=== PATIENT | female | born 1985 | race Caucasian/White ===

== ENCOUNTER 2017-04-25 15:06 | Emergency (ER) | payer SELFPAY ==
[2017-04-25 15:16] VITALS: BP 152/84; PULSE 135; RESP 26; TEMP 97.6
[2017-04-25] MEDS ORDERED: LORazepam 2 MG TAB PO ONE (15:30)
[2017-04-25 18:00] LABS: AUTOMATED NEUTROPHIL # 7.6 TH/MM3 (1.8-7.7); BASOPHIL % 0.5 % (0.0-2.0); EOSINOPHIL % 0.1 % (0.0-4.0); HEMATOCRIT 41.6 % (35.0-46.0); HEMOGLOBIN 14.2 GM/DL (11.6-15.3); LYMPH % 19.4 % (9.0-44.0); MEAN CELL VOLUME 90.1 FL (80.0-100.0); MEAN CORPUSCULAR HEMOGLOBIN 30.8 PG (27.0-34.0); MEAN CORPUSCULAR HGB CONC 34.1 % (32.0-36.0); MEAN PLATELET VOLUME 8.2 FL (7.0-11.0); MONO % 5.6 % (0.0-8.0); MONOCYTE # 0.6 TH/MM3 (0-0.9); NEUT % 74.4 % (16.0-70.0); PLATELET COUNT 154 TH/MM3 (150-450); RED BLOOD COUNT 4.62 MIL/MM3 (4.00-5.30); RED CELL DISTRIBUTION WIDTH 14.1 % (11.6-17.2); WHITE BLOOD COUNT 10.3 TH/MM3 (4.0-11.0)
[2017-04-25 18:28] LABS: AST (GOT) 35 U/L (15-37); BICARBONATE 28.5 MEQ/L (21.0-32.0); BLOOD UREA NITROGEN 6 MG/DL (7-18); CALCIUM 9.1 MG/DL (8.5-10.1); CHLORIDE 99 MEQ/L (98-107); CREATININE 0.77 MG/DL (0.50-1.00); GLOMERULAR FILTRATION RATE 87 ML/MIN (>89); GLUCOSE,RANDOM 93 MG/DL (74-106); SODIUM (NA) 136 MEQ/L (136-145)
[2017-04-25 18:29] LABS: ALT (GPT) 33 U/L (10-53)
[2017-04-25 18:31] LABS: ALKALINE PHOSPHATASE 150 U/L (45-117); TOTAL BILIRUBIN ADULT 0.9 MG/DL (0.2-1.0); TOTAL PROTEIN 7.8 GM/DL (6.4-8.2)
[2017-04-25 20:31] LABS: BACTERIA, URINE RARE /hpf; BILIRUBIN, URINE NEG (NEG); BLOOD, URINE NEG (NEG); GLUCOSE,URINE NEG (NEG); HYALINE CAST, URINE 1 /lpf (RARE); KETONE, URINE NEG (NEG); MUCUS URINE FEW /lpf (OCC); NITRITE,URINE NEG (NEG); SQUAMOUS EPITHELIAL CELL URINE 5 /hpf (0-5); URINE COLOR YELLOW (YELLW/STRAW); URINE LEUKOCYTE ESTERASE NEG (NEG)
--- NOTE | 2017-04-25 21:38 | PD ---
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 Patient states that she woke up with a sensation that is worsened throughout the day. Patient says she has had previous episodes of this and does have panic attacks occasionally. Her last serious panic attack was 6 months ago. Patient denies any medical issues or medication use. States that she does go on alcohol "binges" and states these occur about twice a week. Says she drinks about a 12 pack of beer on these binges. Her last binge was last night. Says that she is upset because "they are trying to take her kids". Patient denies suicidal homicidal ideation at this time. Patient has never had a "serious" suicide attempts. States she felt suicidal several days ago but again does not feel suicidal now. [facility] Social History Tobacco Use: No Allergies-Medications (Allergen,Severity, Reaction): Coded Allergies: No Known Allergies (Unverified , 04/25/17) Review of Systems Except as stated in HPI: all other systems reviewed are Neg Physical Exam Narrative GENERAL: Well-developed, well-nourished, resting in bed comfortably SKIN: Focused skin assessment warm/dry. HEAD: Atraumatic. Normocephalic. EYES: Pupils equal and round. No scleral icterus. No injection or drainage. ENT: No nasal bleeding or discharge. Mucous membranes pink and moist. NECK: Trachea midline. No JVD. No midline tenderness CARDIOVASCULAR: Regular rate and rhythm. No murmur appreciated. RESPIRATORY: No accessory muscle use. Clear to auscultation. Breath sounds equal bilaterally. GASTROINTESTINAL: Abdomen soft, non-tender, nondistended. Hepatic and splenic margins not palpable. MUSCULOSKELETAL: No obvious deformities. No clubbing. No cyanosis. No edema. Left anterior chest mild tenderness palpation NEUROLOGICAL: Awake and alert. No obvious cranial nerve deficits. Motor grossly within normal limits. Normal speech. PSYCHIATRIC: Appropriate mood and affect; insight and judgment normal. Data Data Last Documented VS Vital Signs Date Time Temp Pulse Resp B/P (MAP) Pulse Ox O2 Delivery O2 Flow Rate FiO2 04/25/17 15:16 97.6 135 26 152/84 (106) Orders Orders Lorazepam (Ativan) (04/25/17 15:30) Complete Blood Count With Diff (04/25/17 17:12) Comprehensive Metabolic Panel (04/25/17 17:12) Urinalysis - C+S If Indicated (04/25/17 17:12) Drug Screen, Random Urine (04/25/17 17:12) Alcohol (Ethanol) (04/25/17 17:12) Ed Urine Pregnancytest Poc (04/25/17 17:12) Potassium Chloride (Kcl) (04/25/17 21:45) Ed Discharge Order (04/25/17 21:45) Labs Laboratory Tests Test 04/25/17 17:22 04/25/17 17:51 White Blood Count 10.3 TH/MM3 Red Blood Count 4.62 MIL/MM3 Hemoglobin 14.2 GM/DL Hematocrit 41.6 % Mean Corpuscular Volume 90.1 FL Mean Corpuscular Hemoglobin 30.8 PG Mean Corpuscular Hemoglobin Concent 34.1 % Red Cell Distribution Width 14.1 % Platelet Count 154 TH/MM3 Mean Platelet Volume 8.2 FL Neutrophils (%) (Auto) 74.4 % Lymphocytes (%) (Auto) 19.4 % Monocytes (%) (Auto) 5.6 % Eosinophils (%) (Auto) 0.1 % Basophils (%) (Auto) 0.5 % Neutrophils # (Auto) 7.6 TH/MM3 Lymphocytes # (Auto) 2.0 TH/MM3 Monocytes # (Auto) 0.6 TH/MM3 Eosinophils # (Auto) 0.0 TH/MM3 Basophils # (Auto) 0.0 TH/MM3 CBC Comment DIFF FINAL Differential Comment Blood Urea Nitrogen 6 MG/DL Creatinine 0.77 MG/DL Random Glucose 93 MG/DL Total Protein 7.8 GM/DL Albumin 4.0 GM/DL Calcium Level 9.1 MG/DL Alkaline Phosphatase 150 U/L Aspartate Amino Transf (AST/SGOT) 35 U/L Alanine Aminotransferase (ALT/SGPT) 33 U/L Total Bilirubin 0.9 MG/DL Sodium Level 136 MEQ/L Potassium Level 3.2 MEQ/L Chloride Level 99 MEQ/L Carbon Dioxide Level 28.5 MEQ/L Anion Gap 9 MEQ/L Estimat Glomerular Filtration Rate 87 ML/MIN Ethyl Alcohol Level LESS THAN 3 MG/DL Urine Color YELLOW Urine Turbidity CLEAR Urine pH 6.0 Urine Specific [place] 1.008 Urine Protein NEG mg/dL Urine Glucose (UA) NEG mg/dL Urine Ketones NEG mg/dL Urine Occult Blood NEG Urine Nitrite NEG Urine Bilirubin NEG Urine Urobilinogen LESS THAN 2.0 MG/DL Urine Leukocyte Esterase NEG Urine RBC 1 /hpf Urine WBC 1 /hpf Urine Squamous Epithelial Cells 5 /hpf Urine Bacteria RARE /hpf Urine Hyaline Casts 1 /lpf Urine Mucus FEW /lpf Microscopic Urinalysis Comment CULT NOT INDICATED Urine Opiates Screen NEG Urine Barbiturates Screen NEG Urine Amphetamines Screen NEG Urine Benzodiazepines Screen NEG Urine Cocaine Screen NEG Urine Cannabinoids Screen NEG MDM Medical Decision Making Medical Screen Exam Complete: Yes Emergency Medical Condition: Yes Differential Diagnosis Panic attack, anxiety, alcohol withdrawal Narrative Course 32y female presents emergency department complaining of chest pain, difficulty moving her arms, severe anxiety and feeling as if she was 'going to pass out' 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 Patient states that she woke up with a sensation that is worsened throughout the day. Patient says she has had previous episodes of this and does have panic attacks occasionally. Her last serious panic attack was 6 months ago. Patient denies any medical issues or medication use. States that she does go on alcohol "binges" and states these occur about twice a week. Says she drinks about a 12 pack of beer on these binges. Her last binge was last night. Says that she is upset because "they are trying to take her kids". Patient denies suicidal homicidal ideation at this time. Patient has never had a "serious" suicide attempts. States she felt suicidal several days ago but again does not feel suicidal now. Vitals stable. HR and BP decreased to 80-100BPM, 134/86 throughout visit. Physical exam findings unremarkable. Labs show K=3.2, 30meq KCl administered. CBC unremarkable, remaining CMP and labs unremarkable. UDS negative. Pt given 2mg ativan in the waiting room today by triage staff to reduce her symptoms, prior to seeing her in the ED today. Symptoms are resolved by the time I was able to evaluate her. I had a lengthy discussion regarding her condition today. I provided reassurance regarding her labs and physical exam findings. Patient admitted that she has been more upset because her kids are "being taken away". Patient does deny suicidal homicidal ideations however, states that she has been suicidal previously. Patient denies any previous attempts. I offered a psych eval and patient declined. I gave the patient a packet of psychiatrists and other references for her condition. Advised that she should abstain from alcohol as she may seriously injured herself. I discussed grounding techniques to help with her symptoms. Patient states understanding and she would follow-up as discussed today. Advised her to return for worsening or persistent symptoms. Diagnosis Primary Impression: Panic attack Additional Impression: Hypokalemia Referrals: Psychiatrist [facility] Additional Instructions: You have been given a packet of information from our psychiatry team. I recommend you follow-up with her providers in this packet. Avoid alcohol when you are upset as it is possible to hurt yourself further. If you develop worsening or persistent symptoms return to the emergency department. Disposition: 01 DISCHARGE HOME Condition: Stable Geovanna Barnes Apr 25, 2017 21:38
[2017-04-25] MEDS ORDERED: POTASSIUM CHLORIDE 10 MEQ CONTROLLED RELEASE TAB PO ONE (21:45)
== END 2017-04-25 22:13 | disposition home or self-care (01) ==
LOC: EDBD 15:06 → NEPC 15:06
DX: F41.0 Panic disorder [episodic paroxysmal anxiety] (principal); E87.6 Hypokalemia; Z72.89 Other problems related to lifestyle
CPT/HCPCS: 80053; 80307; 81001; 85025; 99283

== ENCOUNTER 2017-04-30 23:44 | Emergency (ER) | payer OTHER ==
[~2017-04-30] VITALS: Ht 157.5 cm; Wt 50.0 kg
[2017-04-30 23:57] VITALS: BP 116/78; PULSE 99; RESP 18; O2SAT 96
--- NOTE | 2017-04-30 23:59 | PD ---
HPI Chief Complaint: Combative behavior Time Seen by Provider: 23:53 Travel History International Travel<30 days: No Contact w/Intl Traveler<30days: No Traveled to known affect area: No History of Present Illness HPI 32-year-old female was brought in by Police [employer] for medical clearance. Patient was drinking alcohol tonight and started having combative behavior. Patient is uncooperative and cursing and screaming in the room. Patient has history of alcohol abuse in the past. PFSH Social History Tobacco Use: No Allergies-Medications (Allergen,Severity, Reaction): Coded Allergies: No Known Allergies (Unverified , 04/25/17) Review of Systems General / Constitutional: No: Fever Eyes: No: Visual changes HENT: No: Headaches Cardiovascular: No: Chest Pain or Discomfort Respiratory: No: Shortness of Breath Gastrointestinal: No: Abdominal Pain Genitourinary: No: Dysuria Musculoskeletal: No: Pain Skin: No Rash Neurologic: No: Weakness Psychiatric: No: Depression Endocrine: No: Polydipsia Hematologic/Lymphatic: No: Easy Bruising Physical Exam Narrative GENERAL: Well-nourished, well-developed patient. SKIN: Focused skin assessment warm/dry. HEAD: Normocephalic. EYES: No scleral icterus. No injection or drainage. NECK: Supple, trachea midline. No JVD or lymphadenopathy. CARDIOVASCULAR: Regular rate and rhythm without murmurs, gallops, or rubs. Heart rate 100 on examination. RESPIRATORY: Breath sounds equal bilaterally. No accessory muscle use. GASTROINTESTINAL: Abdomen soft, non-tender, nondistended. MUSCULOSKELETAL: No cyanosis, or edema. BACK: Nontender without obvious deformity. No CVA tenderness. Neurologic exam: Patient is intoxicated and combative. Patient moves all extremity well. No obvious focal neurological deficit. [facility] Medical Decision Making Medical Screen Exam Complete: Yes Emergency Medical Condition: Yes Differential Diagnosis Differential diagnosis including intoxication, substance-induced mood disorder, psychosis, schizophrenia. Narrative Course 32-year-old female, intoxicated, combative. Patient is medically cleared for law-enforcement. Diagnosis Primary Impression: Alcohol intoxication Qualified Codes: F10.920 - Alcohol use, unspecified with intoxication, uncomplicated Additional Instructions: Patient will be released to the custody of police department. Med/Other Pt SpecificInfo: No Meds Exist/No RX given Disposition: [address] LAW ENFORCEMNT Condition: Stable Malik,Hung MD Apr 30, 2017 23:59
== END 2017-05-01 00:36 ==
LOC: NEPD 23:44
DX: F10.129 Alcohol abuse with intoxication, unspecified (principal)
CPT/HCPCS: 99281